=== PATIENT | female | born 1975 | race African-American/Black ===

== ENCOUNTER 2019-08-15 15:31 | Inpatient (IN) | payer OTHER, MEDICAID ==
[~2019-08-15] VITALS: Ht 198.1 cm; Wt 65.8 kg
[2019-08-15] MEDS ORDERED: MORPHINE SULFATE 4 MG/ML CPJ (NOT FOR IM USE) IV STA (16:33)
[2019-08-15] MEDS ORDERED: ONDANSETRON HCL 4MG/2ML INJ IV STA (16:33)
[2019-08-15] MEDS ORDERED: SODIUM CHLORIDE 0.9% 1,000 ML IV ONE ×2 (16:33→17:55)
[2019-08-15 16:59] LABS: HEMATOCRIT. 36.3 % (36.0-48.0); MEAN CORPUSCULAR HEMOGLOBIN 22.2 pg (28.0-32.0); MEAN PLATELET VOLUME 7.8 fl (7.4-10.4); PLATELET 510 x1000/uL (130-400); RED BLOOD CELL COUNT 4.98 mill/uL (4.2-5.4)
[2019-08-15 17:00] LABS: CHLORIDE 106 mEq/L (98-107)
[2019-08-15 17:05] LABS: ETHANOL BLOOD < 10 mg/dL
[2019-08-15 17:24] LABS: PLATELET ESTIMATE INCREASED
[2019-08-15 17:51] LABS: HCG SCREEN NEGATIVE
[2019-08-15] MEDS: KETOROLAC 30MG/ML VIAL IV STA ×2 (18:02→18:07)
[2019-08-15] MEDS ORDERED: MORPHINE SULFATE 4 MG/ML CPJ (NOT FOR IM USE) IV ONE (19:00)
[2019-08-15] MEDS ORDERED: PIPERACILLIN/TAZ 3.375G PREMIX 50 ML IV ONE (19:00)
[2019-08-15] MEDS ORDERED: ONDANSETRON HCL 4MG/2ML INJ IV ONE (19:00)
[2019-08-15] MEDS ORDERED: METRONIDAZOLE 500 MG PREMIX 100 ML IV ONE (19:00)
[2019-08-15 20:06] LABS: CLARITY URINE CLEAR (CLEAR); COLOR URINE YELLOW (YELLOW); KETONES URINE 1+ (NEGATIVE); LEUKOCYTE ESTERASE URINE NEGATIVE (NEGATIVE); NITRITE URINE NEGATIVE (NEGATIVE); OCCULT BLOOD URINE NEGATIVE (NEGATIVE); PH URINE 5.5 (4.5-8.0); PROTEIN URINE 1+ (NEGATIVE); SPECIFIC GRAVITY URINE 1.044 (1.005-1.030); UROBILINOGEN URINE 0.2 E.U./dL (0.2-1.0)
[2019-08-15 20:24] LABS: *AMPHETAMINES SCREEN URINE NEGATIVE (NEGATIVE); *BARBITURATES SCREEN URINE NEGATIVE (NEGATIVE); *BENZODIAZEPINES SCREEN URINE NEGATIVE (NEGATIVE); METHADONE URINE SCREEN NEGATIVE (NEGATIVE); PHENCYCLIDINE URINE SCREEN NEGATIVE (NEGATIVE)
[2019-08-15 20:25] LABS: CANNABINOID URINE SCREEN NEGATIVE (NEGATIVE)
[2019-08-15 20:32] LABS: *COCAINE SCREEN URINE PRESUMTIVE POSITIVE (NEGATIVE); OPIATES URINE SCREEN PRESUMTIVE POSITIVE (NEGATIVE)
[2019-08-15] MEDS ORDERED: HYDRALAZINE 20MG/ML VIAL IV PRN (21:00)
[2019-08-15] MEDS: DEXT 5%/0.45% NACL 1000ML 1,000 ML IV SCH (21:21)
[2019-08-16 03:30] VITALS: BP 143/87
[2019-08-16] MEDS: ONDANSETRON HCL 4MG/2ML INJ IV PRN (04:02)
[2019-08-16] MEDS: MORPHINE SULFATE 2 MG/ML CPJ (NOT FOR IM USE) IV PRN ×3 (04:03→18:42)
[2019-08-16] MEDS ORDERED: HYDRALAZINE 10 MG in SODIUM CHLORIDE 0.9% 49.5 ML IV PRN (04:30)
[2019-08-16] MEDS ORDERED: PIPERACILLIN/TAZOBACTAM 3.375 G in DEXT 5% WATER 100 ML IV SCH (06:00)
[2019-08-16] MEDS: DEXT 5%/0.45% NACL 1000ML 1,000 ML IV SCH ×2 (07:34→17:37)
[2019-08-16 08:00] VITALS: BP 123/71
[2019-08-16] MEDS: PANTOPRAZOLE SODIUM 40 MG/VIAL IV SCH (08:37)
[2019-08-16 09:24] LABS: BASOPHILS % 0.3 % (0.0-2.0); EOSINOPHILS % 0.3 % (0.0-5.0); HEMATOCRIT. 27.3 % (36.0-48.0); HEMOGLOBIN. 8.4 g/dL (12.0-16.0); LYMPHOCYTES % 15.5 % (20.0-50.0); MEAN CORPUSCULAR HEMOGLOBIN 22.4 pg (28.0-32.0); MEAN CORPUSCULAR VOLUME 72.4 fL (81.0-99.0); MEAN PLATELET VOLUME 7.6 fl (7.4-10.4); MONOCYTES % 10.6 % (2.0-8.0); NEUTROPHILS % 73.3 % (40.0-76.0); PLATELET 381 x1000/uL (130-400); RED BLOOD CELL COUNT 3.76 mill/uL (4.2-5.4)
[2019-08-16 09:37] LABS: CHLORIDE 111 mEq/L (98-107)
[2019-08-16 12:00] VITALS: BP 134/86
[2019-08-16] MEDS: PIPERACILLIN/TAZOBACTAM 3.375 G in DEXT 5% WATER 100 ML IV SCH ×2 (13:40→18:42)
[2019-08-16 13:56] LABS: TOTAL IRON BINDING CAPACITY 326 ug/dL (250-450)
[2019-08-16 16:00] VITALS: BP 120/77
[2019-08-16] MEDS: IRON SUCROSE COMPLEX 100 MG/5 ML ML IV SCH (17:36)
[2019-08-16 20:00] VITALS: BP 120/75
[2019-08-17] VITALS: BP 116/74
[2019-08-17] MEDS: PIPERACILLIN/TAZOBACTAM 3.375 G in DEXT 5% WATER 100 ML IV SCH ×4 (03:01→17:58)
[2019-08-17 06:12] LABS: BASOPHILS % 0.8 % (0.0-2.0); EOSINOPHILS % 2.5 % (0.0-5.0); HEMOGLOBIN. 7.5 g/dL (12.0-16.0); MEAN CORPUSCULAR HEMOGLOBIN 22.8 pg (28.0-32.0); MEAN PLATELET VOLUME 7.6 fl (7.4-10.4); MONOCYTES % 11.9 % (2.0-8.0); NEUTROPHILS % 58.8 % (40.0-76.0); PLATELET 338 x1000/uL (130-400); RED BLOOD CELL COUNT 3.29 mill/uL (4.2-5.4); RED CELL DISTRIBUTION WIDTH 16.9 % (11.6-14.6)
[2019-08-17 06:40] LABS: CHLORIDE 112 mEq/L (98-107)
[2019-08-17 08:00] VITALS: BP 119/82
[2019-08-17] MEDS: PANTOPRAZOLE SODIUM 40 MG/VIAL IV SCH (08:18)
[2019-08-17] MEDS ORDERED: POTASSIUM CHLORIDE 20MEQ/PACKET PO SCH (09:00)
[2019-08-17] MEDS ORDERED: KCL 20MEQ/100ML PREMIX 100 ML IV SCH (10:00)
[2019-08-17] MEDS ORDERED: POTASSIUM CHLORIDE 20MEQ TABLET SR PO SCH (11:00)
[2019-08-17 12:00] VITALS: BP 133/75
[2019-08-17] MEDS: DEXT 5%/0.45% NACL 1000ML 1,000 ML IV SCH ×2 (14:06→22:34)
[2019-08-17 16:00] VITALS: BP 122/88
[2019-08-17] MEDS: MORPHINE SULFATE 2 MG/ML CPJ (NOT FOR IM USE) IV PRN ×2 (16:18→22:30)
[2019-08-17] MEDS: IRON SUCROSE COMPLEX 100 MG/5 ML ML IV SCH (17:58)
[2019-08-18] VITALS: BP 106/73
[2019-08-18] MEDS: PIPERACILLIN/TAZOBACTAM 3.375 G in DEXT 5% WATER 100 ML IV SCH ×5 (00:21→23:54)
[2019-08-18 04:00] VITALS: BP 117/76
[2019-08-18 08:00] VITALS: BP 102/62
[2019-08-18] MEDS: PANTOPRAZOLE SODIUM 40 MG/VIAL IV SCH (09:17)
[2019-08-18] MEDS: DEXT 5%/0.45% NACL 1000ML 1,000 ML IV SCH ×3 (09:18→21:21)
[2019-08-18 12:00] VITALS: BP 110/75
[2019-08-18 16:00] VITALS: BP 110/72
[2019-08-18] MEDS: IRON SUCROSE COMPLEX 100 MG/5 ML ML IV SCH (17:18)
[2019-08-18 19:56] LABS: BASOPHILS % 1.2 % (0.0-2.0); EOSINOPHILS % 2.7 % (0.0-5.0); HEMATOCRIT. 24.2 % (36.0-48.0); HEMOGLOBIN. 7.5 g/dL (12.0-16.0); LYMPHOCYTES % 27.5 % (20.0-50.0); MEAN CORPUSCULAR HEMOGLOBIN 23.3 pg (28.0-32.0); MEAN CORPUSCULAR VOLUME 74.6 fL (81.0-99.0); MEAN PLATELET VOLUME 7.8 fl (7.4-10.4); MONOCYTES % 8.9 % (2.0-8.0); NEUTROPHILS % 59.7 % (40.0-76.0); PLATELET 330 x1000/uL (130-400); RED BLOOD CELL COUNT 3.24 mill/uL (4.2-5.4); RED CELL DISTRIBUTION WIDTH 17.4 % (11.6-14.6)
[2019-08-18 20:00] VITALS: BP 117/76
[2019-08-18 20:03] LABS: CHLORIDE 111 mEq/L (98-107)
[2019-08-19] VITALS: BP 116/77
[2019-08-19] MEDS: MORPHINE SULFATE 2 MG/ML CPJ (NOT FOR IM USE) IV PRN ×2 (02:10→16:56)
[2019-08-19 04:00] VITALS: BP 116/77
[2019-08-19] MEDS: PIPERACILLIN/TAZOBACTAM 3.375 G in DEXT 5% WATER 100 ML IV SCH ×4 (05:56→23:50)
[2019-08-19 07:11] LABS: CHLORIDE 113 mEq/L (98-107)
[2019-08-19 07:19] LABS: PHOSPHORUS 3.5 mg/dL (2.5-4.9)
[2019-08-19 07:30] LABS: BASOPHILS % 1.1 % (0.0-2.0); EOSINOPHILS % 3.1 % (0.0-5.0); HEMATOCRIT. 25.5 % (36.0-48.0); HEMOGLOBIN. 7.8 g/dL (12.0-16.0); LYMPHOCYTES % 23.9 % (20.0-50.0); MEAN CORPUSCULAR HEMOGLOBIN 22.7 pg (28.0-32.0); MEAN CORPUSCULAR VOLUME 73.9 fL (81.0-99.0); MEAN PLATELET VOLUME 7.9 fl (7.4-10.4); MONOCYTES % 6.5 % (2.0-8.0); NEUTROPHILS % 65.4 % (40.0-76.0); PLATELET 345 x1000/uL (130-400); RED BLOOD CELL COUNT 3.44 mill/uL (4.2-5.4); RED CELL DISTRIBUTION WIDTH 17.2 % (11.6-14.6)
[2019-08-19] MEDS: PANTOPRAZOLE SODIUM 40 MG/VIAL IV SCH (08:35)
[2019-08-19 12:00] VITALS: BP 121/79
[2019-08-19] MEDS: DEXT 5%/0.45% NACL 1000ML 1,000 ML IV SCH ×2 (15:12→23:50)
[2019-08-19 16:00] VITALS: BP 119/79
[2019-08-19] MEDS: ONDANSETRON HCL 4MG/2ML INJ IV PRN (17:06)
[2019-08-19 20:00] VITALS: BP 115/67
[2019-08-20] VITALS: BP 110/70
[2019-08-20] MEDS: ONDANSETRON HCL 4MG/2ML INJ IV PRN (01:54)
[2019-08-20] MEDS: MORPHINE SULFATE 2 MG/ML CPJ (NOT FOR IM USE) IV PRN (01:54)
[2019-08-20 04:00] VITALS: BP 107/67
[2019-08-20] MEDS: PIPERACILLIN/TAZOBACTAM 3.375 G in DEXT 5% WATER 100 ML IV SCH ×2 (05:18→12:17)
[2019-08-20 07:27] LABS: BASOPHILS % 0.9 % (0.0-2.0); EOSINOPHILS % 3.4 % (0.0-5.0); HEMATOCRIT. 27.8 % (36.0-48.0); HEMOGLOBIN. 8.5 g/dL (12.0-16.0); LYMPHOCYTES % 18.5 % (20.0-50.0); MEAN CORPUSCULAR HEMOGLOBIN 22.9 pg (28.0-32.0); MONOCYTES % 9.7 % (2.0-8.0); NEUTROPHILS % 67.5 % (40.0-76.0); PLATELET 366 x1000/uL (130-400); RED BLOOD CELL COUNT 3.71 mill/uL (4.2-5.4); RED CELL DISTRIBUTION WIDTH 17.1 % (11.6-14.6)
[2019-08-20 07:32] LABS: CHLORIDE 110 mEq/L (98-107)
[2019-08-20 08:00] VITALS: BP 125/71
[2019-08-20] MEDS: PANTOPRAZOLE SODIUM 40 MG/VIAL IV SCH (08:35)
[2019-08-20] MEDS: DEXT 5%/0.45% NACL 1000ML 1,000 ML IV SCH (11:34)
[2019-08-20 12:00] VITALS: BP 119/76
[2019-08-20 14:22] VITALS: BP 121/81
== END 2019-08-20 15:05 | DRG 720 ==
LOC: ER 15:31 → 6EST 19:23 → EDBEDREQTM 19:45 → EDBEDREQSVC 19:45 → EDBEDREQ 19:45 → ENRESERV 08-16 02:28
PROVIDERS: ADMIT Internal Medicine; ATTEND Internal Medicine
DX: A41.9 Sepsis, unspecified organism (principal); E41 Nutritional marasmus; K56.609 Unspecified intestinal obstruction, unspecified as to partial versus complete obstruction; K56.7 Ileus, unspecified; E44.1 Mild protein-calorie malnutrition; D50.9 Iron deficiency anemia, unspecified; F17.210 Nicotine dependence, cigarettes, uncomplicated; F14.10 Cocaine abuse, uncomplicated; J40 Bronchitis, not specified as acute or chronic; K04.7 Periapical abscess without sinus; K52.9 Noninfective gastroenteritis and colitis, unspecified; Z59.0 Homelessness; Z98.891 History of uterine scar from previous surgery; Z71.51 Drug abuse counseling and surveillance of drug abuser; Z71.6 Tobacco abuse counseling; Z68.1 Body mass index [BMI] 19.9 or less, adult
CPT/HCPCS: 36415; 71045; 74176; 80048; 80053; 80305; 80320; 81003; 82270; 82728; 83540; 83550; 83605; 83735; 83880; 84100; 84484; 84703; 85025; 93005; 99285; C1893; C9113; J1885; J2270; J2405; J2543; J3480; J3490; J7030; J7060; G0480